=== PATIENT | female | born 1935 | race Caucasian/White ===

== ENCOUNTER → 2016-11-08 | Outpatient (CLI) | payer OTHER ==
[2015-05-09 20:10] VITALS: BP 134/68
[2016-11-08 11:38] LABS: ALANINE AMINOTRANSFERASE 16 Units/L (12-78); ALBUMIN 3.8 g/dL (3.4-5.0); ALKALINE PHOSPHATASE 64 Units/L (46-116); ASPARTATE AMINO TRANSFERASE 19 Units/L (15-37); BLOOD UREA NITROGEN 22 mg/dL (7-18); CALCIUM 9.5 mg/dL (8.5-10.1); CARBON DIOXIDE 27.8 mmol/L (21-32); CHLORIDE 110 mmol/L (98-107); COR NA(FOR HYPERGLY) 145 mmol/L (136-145); CREATININE 1.52 mg/dL (0.55-1.02); GLUCOSE 113 mg/dL (65-99); SODIUM 145 mmol/L (136-145); TOTAL PROTEIN 7.4 g/dL (6.4-8.2); eGFR BLACK RACES 42 (>60); eGFR NON BLACK RACES 35 (>60)
== END ==
LOC: LAB 10:40
PROVIDERS: ATTEND Internal Medicine Cardiovascular Disease
DX: I25.10 Atherosclerotic heart disease of native coronary artery without angina pectoris (principal); I10 Essential (primary) hypertension; R06.09 Other forms of dyspnea
CPT/HCPCS: 36415; 80053

== ENCOUNTER 2016-12-24 19:52 | Inpatient (IN) | payer OTHER ==
--- NOTE | 2016-12-24 20:19 | CT ---
HISTORY: Altered mental status Noncontrast head CT examination. Comparison: None. Technique: Multiple axial images of the brain were obtained from the skull base to the vertex without administr ation of IV contrast. Findings: There is moderate sulcal and cisternal prominence as well as atherosclerotic change in the proximal intracranial carotid and vertebral arteries, which is not out of proportion to the patient 's stated age. There is diffuse CT density alteration seen in the periventricular white matter of th e high and mid-convexity, which is likely in the setting of small vessel disease and not out of prop ortion to the patient's stated age. There is mild bilateral ex vacuo ventricular dilatation without evidence for hydrocephalus or herniation syndrome. No midline shift is evident. No acute intraparenc hymal hemorrhage or mass can be identified. No extra-axial fluid collections are seen. No alterati on in the attenuation of the brain parenchyma can be identified to suggest acute or subacute ischemi c change. However, if the patients symptoms are clinically \T\ neurologically concerning for an acu te ischemic event, then MR imaging of the brain with DWI sequencing would likely be beneficial to ex clude an acute CVA. The paranasal sinuses and mastoids are clear. The remaining extracranial struct ures are unremarkable/stable. IMPRESSION: 1. No acute intracranial process or change identified. 2. Age-appropriate intra-cranial changes of advancing age. Reported By:
--- NOTE | 2016-12-24 20:21 | DR.GENAD ---
HPI - PCP Primary Care Physician: lul - Complaint/Symptoms Chief Complaint Doctors Comments: patient was standing not moving at home. seemed to have problems answering questions. Also some incoordination trying to get cup to lips. Chief Complaint:: family states" she's not acting right she may have had a stroke" - Nurses notes reviewed Nurses Notes Review: Yes - Source History Provided: Patient - Mode of Arrival Mode of Arrival: Wheelchair - Timing Onset of Chief Complaint: 12/24/16 Came on: Suddenly - Duration Duration: Constant - Location Location: general - Severity Severity: Moderate - Associated Signs and Symptoms Associated Signs and Symptoms: fever - Other History Other History: heart valve surgery 6 weeks ago PMH - PMH Past Medical History: Yes Past Medical History: Hypertension, [place] Past Surgical History: Yes Surgical History: CABG/Valve Surgery - Family History History of Family Medical Conditions: Yes Family Medical History: Coronary Artery Disease - Social History Do you use any recreational Drugs:: No Lives Where: Home - infectious screening In the last 2 months have you had wt loss of >10#?: NO Have you had fever, night sweats or hemotysis?: No Have you traveled outside the country in the last 6 months?: No Isolation: Standard PE - Vital Signs Vitals: Pulse Rate [Left Brachial] 91 Pulse Rate 92 Respiratory Rate 18 Blood Pressure [Right Arm] 149/65 Blood Pressure 146/66 O2 Sat by Pulse Oximetry 99 ROR - Labs Reviewed Result Diagrams: 12/24/16 20:41 12/24/16 20:41 Laboratory: WBC 14.5 X10^3/uL (3.6-10.0) H 12/24/16 20:41 RBC 4.26 X10^6/uL (3.5-5.4) 12/24/16 20:41 Hgb 12.7 g/dL (12.0-16.0) 12/24/16 20:41 Hct 37.8 % (36.0-47.0) 12/24/16 20:41 MCV 88.7 fL (80.0-100.0) 12/24/16 20:41 MCH 29.8 pg (27.0-34.0) 12/24/16 20:41 MCHC 33.6 g/dL (33.0-35.0) 12/24/16 20:41 RDW 15.0 % (11.6-16.5) 12/24/16 20:41 Plt Count 266 X10^3/uL (150.0-450.0) 12/24/16 20:41 MPV 8.9 fL (7.4-11.0) 12/24/16 20:41 Neut % 79.9 % (42.0-75.0) H 12/24/16 20:41 Lymph % 10.5 % (21.0-51.0) L 12/24/16 20:41 Cloud % 8.6 % (0.0-13.0) 12/24/16 20:41 Eos % 0.6 % (0.9-2.9) L 12/24/16 20:41 Baso % 0.4 % (0.2-1.0) 12/24/16 20:41 Neut # 11.6 x10^3/uL (2.2-4.8) H 12/24/16 20:41 Lymph # 1.5 X10^3/uL (1.3-2.9) 12/24/16 20:41 Cloud # 1.2 x10^3/uL (0.3-0.8) H 12/24/16 20:41 Eos # 0.1 x10^3/uL (0.0-0.2) 12/24/16 20:41 Baso # 0.1 X10^3/uL (0.0-0.1) 12/24/16 20:41 Absolute Nucleated RBC 0.0 /100WBC 12/24/16 20:41 INR Target Range - 12/24/16 20:41 INR 2.79 (0.8-1.3) H 12/24/16 20:41 Sodium 140 mmol/L (136-145) 12/24/16 20:41 Corrected Sodium 140 mmol/L (136-145) 12/24/16 20:41 Potassium 4.8 mmol/L (3.5-5.1) 12/24/16 20:41 Chloride 105 mmol/L (98-107) 12/24/16 20:41 Carbon Dioxide 25.1 mmol/L (21-32) 12/24/16 20:41 BUN 28 mg/dL (7-18) H 12/24/16 20:41 Creatinine 1.58 mg/dL (0.55-1.02) H 12/24/16 20:41 Est GFR (MDRD) Af Amer 41 (>60) L 12/24/16 20:41 Est GFR (MDRD) Non-Af 34 (>60) L 12/24/16 20:41 Glucose 115 mg/dL (65-99) H 12/24/16 20:41 Lactic Acid 2.0 mmol/L (0.4-2.0) 12/24/16 20:41 Calcium 9.6 mg/dL (8.5-10.1) 12/24/16 20:41 Corrected Calcium TNP 12/24/16 20:41 Total Bilirubin 1.50 mg/dL (0.2-1.0) H 12/24/16 20:41 AST 30 Units/L (15-37) 12/24/16 20:41 ALT 27 Units/L (12-78) 12/24/16 20:41 Alkaline Phosphatase 112 Units/L (46-116) 12/24/16 20:41 Creatine Kinase 70 Units/L (26-192) 12/24/16 20:41 CK-MB (CK-2) 1.0 ng/mL (0-4.0) 12/24/16 20:41 CK/CKMB % Calc 1.4 % (<4) 12/24/16 20:41 Troponin I < 0.02 ng/mL (0-1.5) 12/24/16 20:41 Total Protein 8.2 g/dL (6.4-8.2) 12/24/16 20:41 Albumin 3.7 g/dL (3.4-5.0) 12/24/16 20:41 Globulin 4.5 g/dL (2.5-4.5) 12/24/16 20:41 Albumin/Globulin Ratio 0.8 Ratio (1.1-2.1) L 12/24/16 20:41 Urine Opiates Screen Negative (NEG=<300) 12/24/16 21:41 Urine Methadone Screen Negative (NEG=<300) 12/24/16 21:41 Ur Barbiturates Screen Negative (NEG=<200) 12/24/16 21:41 Ur Phencyclidine Scrn Negative (NEG=<25) 12/24/16 21:41 Ur Amphetamines Screen Negative (NEG=<1000) 12/24/16 21:41 U Benzodiazepines Scrn Negative (NEG=<200) 12/24/16 21:41 Urine Cocaine Screen Negative (NEG=<300) 12/24/16 21:41 U Marijuana (THC) Screen Negative (NEG=<50) 12/24/16 21:41 - Diagnosis Discharge Problem: Altered mental status Qualifiers: Altered mental status type: unspecified Qualified Code(s): R41.82 - Altered mental status, unspecified UTI (urinary tract infection) Qualifiers: Urinary tract infection type: acute cystitis Hematuria presence: without hematuria Qualified Code(s): N30.00 - Acute cystitis without hematuria - Discharge Plan Disposition: ADMITTED INPATIENT Condition: Stable - Follow ups/Referrals - Instructions
[2016-12-24] MEDS ORDERED: MOTRIN TAB 600 MG PO ONE ×2 (20:39→21:16)
[2016-12-24 21:09] LABS: BASOPHILS # (AUTO) 0.1 X10^3/uL (0.0-0.1); BASOPHILS % (AUTO) 0.4 % (0.2-1.0); EOSINOPHILS # (AUTO) 0.1 x10^3/uL (0.0-0.2); EOSINOPHILS % (AUTO) 0.6 % (0.9-2.9); HEMATOCRIT 37.8 % (36.0-47.0); HEMOGLOBIN 12.7 g/dL (12.0-16.0); LYMPHOCYTES # (AUTO) 1.5 X10^3/uL (1.3-2.9); LYMPHOCYTES % (AUTO) 10.5 % (21.0-51.0); MEAN CORPUSCULAR HEMOGLOBIN 29.8 pg (27.0-34.0); MEAN CORPUSCULAR HGB CONC 33.6 g/dL (33.0-35.0); MEAN CORPUSCULAR VOLUME 88.7 fL (80.0-100.0); MEAN PLATELET VOLUME 8.9 fL (7.4-11.0); MONOCYTES # (AUTO) 1.2 x10^3/uL (0.3-0.8); MONOCYTES % (AUTO) 8.6 % (0.0-13.0); NEUTROPHILS # (AUTO) 11.6 x10^3/uL (2.2-4.8); NEUTROPHILS % (AUTO) 79.9 % (42.0-75.0); PLATELET COUNT 266 X10^3/uL (150.0-450.0); RED BLOOD COUNT 4.26 X10^6/uL (3.5-5.4); WHITE BLOOD COUNT 14.5 X10^3/uL (3.6-10.0)
--- NOTE | 2016-12-24 21:09 | RAD ---
HISTORY: 81-year-old female with cough, fever and altered mental status. Study: Frontal view of the chest. Comparison: Chest radiograph December 17, 2012. Findings: Surgical devices are stable. The trachea is midline. The cardiac silhouette is stably enlarged. Low lung volumes with bibasilar atelectasis without focal consolidation, effusion or pneumothorax. Soft tissues are unremarkable. Osseus structures are unremarkable. IMPRESSION: 1. Stable cardiomegaly with low lung volumes and bibasilar atelectasis, underlying infectious proce ss not excluded, correlate clinically. Reported By:
[2016-12-24 21:24] LABS: BLOOD UREA NITROGEN 28 mg/dL (7-18); CALCIUM 9.6 mg/dL (8.5-10.1); CARBON DIOXIDE 25.1 mmol/L (21-32); CHLORIDE 105 mmol/L (98-107); COR NA(FOR HYPERGLY) 140 mmol/L (136-145); CREATININE 1.58 mg/dL (0.55-1.02); GLUCOSE 115 mg/dL (65-99); SODIUM 140 mmol/L (136-145); TROPONIN I < 0.02 ng/mL (0-1.5); eGFR BLACK RACES 41 (>60); eGFR NON BLACK RACES 34 (>60)
[2016-12-24 21:28] LABS: ALANINE AMINOTRANSFERASE 27 Units/L (12-78); ALBUMIN 3.7 g/dL (3.4-5.0); ALKALINE PHOSPHATASE 112 Units/L (46-116); ASPARTATE AMINO TRANSFERASE 30 Units/L (15-37); CKMB % 1.4 % (<4); CREATINE KINASE 70 Units/L (26-192); TOTAL PROTEIN 8.2 g/dL (6.4-8.2)
[2016-12-24 22:04] LABS: BILIRUBIN,URINE NEGATIVE (NEGATIVE); BLOOD/HEMOGLOBIN,URINE 2+ (NEGATIVE); GLUCOSE, URINE NEGATIVE (NEGATIVE); KETONES,URINE NEGATIVE (NEGATIVE); LEUKOCYTE ESTERASE ,URINE 2+ (NEGATIVE); NITRITES,URINE NEGATIVE (NEGATIVE); PROTEIN,URINE 1+ (NEGATIVE); UROBILINOGEN,URINE 1+ (NORMAL)
[2016-12-24 22:20] LABS: APPEARANCE,URINE SLIGHTLY HAZY (CLEAR); COLOR,URINE YELLOW (YELLOW)
[2016-12-24 22:21] LABS: BACTERIA,URINE TRACE /HPF (NEGATIVE); SQUAMOUS EPITHELIAL CELL,UR FEW /HPF (NEGATIVE)
[2016-12-24] MEDS ORDERED: ROCEPHIN VIAL 1 GM ONE (22:48)
[2016-12-24] MEDS ORDERED: NS 1000 ML 1,000 ML IV SCH (22:48)
[2016-12-24] MEDS ORDERED: NS 50 ML IV + SPIKE MINIBAG* 50 ML IV ONE (22:49)
[2016-12-24] MEDS: ROCEPHIN VIAL 1 GM 1 GM in NS 50 ML IV + SPIKE MINIBAG* 50 ML IV SCH (22:52)
[2016-12-24] MEDS: NS 1000 ML 1,000 ML IV SCH (22:53)
[2016-12-24 23:45] VITALS: BMI 28.8
[2016-12-25] MEDS: DUONEB 0.5 MG/3 MG NEB SCH ×5 (05:17→20:22)
--- NOTE | 2016-12-25 08:08 | DR.H&P ---
H&P - History & Physical for Day of: H&P Date: 12/24/16 - Chief Complaint Chief Complaint: ALTERED MENTAL STATUS,WEAKNESS, FEVER - Allergies Allergies/Adverse Reactions: Allergies Allergy/AdvReac Type Severity Reaction Status Date / Time No Known Drug Allergies Allergy Verified 12/24/16 23:57 - History of Present Illness History of Present Illness: IS A 81 YEAR OLD PATIENT OF OURS WHO PRESENTED TO THE EMERGENCY ROOM LAST NIGHT WITH COMPLAINTS OF WEAKNESS, INCOORDINATION, AND FEVER. FAMILY ALSO STATED THAT PATIENT HAD BEEN CONFUSED AND THAT SYMPTOMS STARTED SUDDENLY PRIOR TO COMING TO THE ER. PATIENT IS S/P MITRAL VALVE REPLACEMENT 6 WEEKS AGO. PATIENT DENIED ANY CHEST PAIN, HOWEVER, WAS NOTED WITH COUGH. ON ARRIVAL TO ER, VITALS WERE 101.0. 92, 18, 98%, 146/66. LABS REPORTED A NORMAL CBC EXCEPT WBC 14.5. CMP WITHIN NORMAL LIMITS EXCEPT VUN 28, CREATININE 1.58, GLUCOSE 115, TOTAL BILIRUBIN 1.50. INR 2.79. URINALYSIS REPORTED WBC 10-15, RBC 2-6, LEUKOCYTES 2+, OCCULT BLOOD 2+, PROTEIN 1+. WE ADMITTED PATIENT FOR FUTHER TREATMENT AND EVALUATION. WE WILL START PATIENT ON NS @80ML/HR, START ROCEPHIN 1GM IV DAILY, AND DUONEBS TID. WE WILL RECHECK LABS AND CHEST XRAY AND FOLLOW UP WITH PATIENT IN AM. - Past Medical History Past Medical History: Angina, CHF, Coronary Artery Disease, Dyslipidemia, GERD, Hypertension, [place] Additional Medical History: VALVULAR HEART DISEASE, CARDIAC ARRHYTHMIA - Past Surgical History Surgical History: CABG/Valve Surgery Additional Surgical History: CATARACTS, MITRAL VALVE REPLACEMENT X 2 - Family History Family Medical History: Coronary Artery Disease - Social History Does patient currently use any type of tobacco product: No Have you used tobacco products in the last 12 months: No Type of Tobacco Use: None Alcohol Use: None Drug Use: None - Medications Home Medications: Amiodarone HCl 1 tab PO DAILY 12/24/16 [History Confirmed 12/24/16] Amlodipine Besylate [NORVASC 5 MG *] 1 tab PO DAILY 12/24/16 [History Confirmed 12/24/16] Furosemide [Furosemide] 1 tab PO DAILY 12/24/16 [History Confirmed 12/24/16] Olmesartan Medoxomil [Benicar] 1 tab PO DAILY 12/24/16 [History Confirmed ] Spironolactone 0.5 tab PO DAILY 12/24/16 [History Confirmed 12/24/16] Warfarin Sodium 1 tab PO HS 12/24/16 [History Confirmed 12/24/16] - Review of Systems Constitutional: See HPI, Fever, Weakness Eyes: No Symptoms Reported. denies: See HPI, Pain, Vision Change, Conjunctivae Inflammation, Eyelid Inflammation, Redness, Other ENT: No Symptoms Reported. denies: See HPI, Ear Pain, Ear Discharge, Nose Pain , Nose Discharge, Nose Congestion, Mouth Pain, Mouth Swelling, Throat Pain, Throat Swelling, Other Respiratory: No Symptoms Reported. denies: See HPI, Cough, Dry, Shortness of Breath, Hemoptysis, SOB with Excertion, Pleuritic Pain, Sputum, Wheezing, Other Cardiovascular: No Symptoms Reported. denies: Chest Pain, See HPI, Palpitations , Orthopnea, Paroxysmal Noc. Dyspnea, Edema, Light Headedness, Other Gastrointestinal: No Symptoms Reported. denies: See HPI, Nausea, Vomiting, Abdominal Pain, Diarrhea, Constipation, Melena, Hematochezia, Other Genitourinary: No Symptoms Reported. denies: See HPI, Dysuria, Frequency, Incontinence, Hematuria, Retention, Other Musculoskeletal: No Symptoms Reported. denies: See HPI, Shoulder Pain, Arm Pain , Back Pain, Hand Pain, Leg Pain, Foot Pain, Neck Pain, Other Skin: No Symptoms Reported. denies: See HPI, Rash, Lesions, Jaundice, Bruising , Wound, Ecchymosis, Other Neurological: See HPI, Weakness, Incoordination, Confusion - Physical Exam Vital Signs: Temperature 98.4 F Pulse Rate [Left Brachial] 91 Pulse Rate 70 Respiratory Rate 20 Blood Pressure [Right Arm] 111/60 O2 Sat by Pulse Oximetry 97 Oriented: Person Eyes: Normal. negative: Blurred Vision, Diplopia, Discharge, Pain, Redness, Photophobia, Other Ear: Normal. negative: Right, Left, Swelling, Ecchymosis, Hemotypanum, Abrasion , Laceration Nose: Normal. negative: Injected, Discharge, Blood, Other Throat: Normal. negative: Tonsillar Hypertrophy, Red, Exudate, Dry, Other Respiratory: Clear Throughout. negative: Diminished Throughout, Rhonchi Throughout, Rales Throughout, Wheezes Throughout, RUL Clear, RML Clear, RLL Clear, MARITA Clear, LML Clear, LLL Clear, RUL Diminished, RML Diminished, RLL Diminished, MARITA Diminished, LML Diminished, LLL Diminished, RUL Absent, RML Absent, RLL Absent, MARITA Absent, LML Absent, LLL Absent, RUL Rhonchi, RML Rhonchi , RLL Rhonchi, MARITA Rhonchi, LML Rhonchi, LLL Rhonchi, RUL Insp. Wheeze, RML Insp. Wheeze, RLL Insp. Wheeze, MARITA Insp.Wheeze, LML Insp.Wheeze, LLL Insp.Wheeze, RUL Exp. Wheeze, RML Exp. Wheeze, RLL Exp. Wheeze, MARITA Exp. Wheeze , LML Exp. Wheeze, LLL Exp. Wheeze, RUL Rales, RML Rales, RLL Rales, MARITA Rales, LML Rales, LLL Rales, RUL Rub, RML Rub, RLL Rub, MARITA Rub, LML Rub, LLL Rub, RUL Squeak, RML Squeak, RLL Squeak, MARITA Squeak, LML Squeak, LLL Squeak Cardiovascular: Normal. negative: Tachycardia, Bradycardia, Irregular, S3, S4, Systolic, Diastolic, Murmur, Edema, Other : Normal. negative: Dysuria, Hematuria, Frequency, Discharge, Testicular Pain , Bleeding, , Other Auscultation: Bowel Sounds: Normal. negative: Bruit, Absent, Increased, Decreased, High Pitched, Other Palpation: Normal. negative: Spleen Enlarged, Liver Enlarged, Mass Pulsatile, Other Tenderness: Normal. negative: Diffuse, RUQ, RLQ, LUQ, LLQ, Epigastric, Periumbilical, Suprapubic, Mild, Moderate, Severe, Rebound, Guarding, Rigidity, Other Skin: Normal. negative: Decreased Turgur, Rash, Papular, Macular, Maculopapular , Vesicular, Pustular, Petechial, Red, Tender, Hot, Diaphoresis, Wound, Bruising , Ecchymosis, Other Musculoskeletal: Normal. negative: Right, Left, Shoulder, Clavicle, Arm, Elbow , Forearm, Wrist, Hand, Hip, Thigh, Knee, Leg, Ankle, Foot, Back:Thoracic, Back: Lumbar, Back:Midline, Back:Paraspinous, Pelvis, Swelling, Tender, Deformity, Pulse Deficit, Motor Deficit, Sensory Deficit, Instability, Crepitance Psychiatric: Normal. negative: Anxiety, Depression, Agitation, Other Mood Description: Calm Affect: Normal Speech Pattern: Unclear - Assessment/Plan (1) UTI (urinary tract infection) Qualifiers: Urinary tract infection type: acute cystitis Hematuria presence: without hematuria Indwelling urinary catheter type: I Encounter type: E Qualified Code(s): N30.00 - Acute cystitis without hematuria Status: Acute Plan: START ROCEPHIN 1GM DAILY, CONTINUE TO MONITOR
[2016-12-25] MEDS: ROCEPHIN VIAL 1 GM 1 GM in NS 50 ML IV + SPIKE MINIBAG* 50 ML IV SCH (08:25)
[2016-12-25 08:35] LABS: BASOPHILS # (AUTO) 0.1 X10^3/uL (0.0-0.1); BASOPHILS % (AUTO) 0.4 % (0.2-1.0); EOSINOPHILS % (AUTO) 0.2 % (0.9-2.9); HEMATOCRIT 36.8 % (36.0-47.0); HEMOGLOBIN 12.3 g/dL (12.0-16.0); LYMPHOCYTES # (AUTO) 1.4 X10^3/uL (1.3-2.9); LYMPHOCYTES % (AUTO) 7.6 % (21.0-51.0); MEAN CORPUSCULAR HEMOGLOBIN 29.8 pg (27.0-34.0); MEAN CORPUSCULAR HGB CONC 33.5 g/dL (33.0-35.0); MEAN CORPUSCULAR VOLUME 88.8 fL (80.0-100.0); MEAN PLATELET VOLUME 8.7 fL (7.4-11.0); MONOCYTES # (AUTO) 1.2 x10^3/uL (0.3-0.8); MONOCYTES % (AUTO) 6.4 % (0.0-13.0); NEUTROPHILS # (AUTO) 16.2 x10^3/uL (2.2-4.8); NEUTROPHILS % (AUTO) 85.4 % (42.0-75.0); PLATELET COUNT 207 X10^3/uL (150.0-450.0); RED BLOOD COUNT 4.14 X10^6/uL (3.5-5.4); RED CELL DISTRIBUTION WIDTH 15.1 % (11.6-16.5)
[2016-12-25 08:52] LABS: ALBUMIN 3.2 g/dL (3.4-5.0); CALCIUM 9.1 mg/dL (8.5-10.1); CARBON DIOXIDE 23.4 mmol/L (21-32); COR CA(FOR HYPOALB) 9.7 mg/dL (8.5-10.1); CREATININE 1.52 mg/dL (0.55-1.02); TOTAL PROTEIN 7.5 g/dL (6.4-8.2)
[2016-12-25] MEDS ORDERED: OLMESARTAN MEDOXOMIL PO SCH (09:00)
[2016-12-25] MEDS: ALDACTONE TAB 25 MG PO SCH (09:55)
[2016-12-25] MEDS: ASPIRIN EC 81 MG PO SCH (09:55)
[2016-12-25] MEDS: CORDARONE TAB 200 MG PO SCH (09:56)
[2016-12-25] MEDS: LASIX PO SCH (09:57)
[2016-12-25] MEDS: TESSALON PERLES PO SCH ×3 (09:58→21:48)
[2016-12-25] MEDS: NORVASC TAB 5 MG PO SCH (09:58)
[2016-12-25] MEDS: PriLOSEC PO SCH (09:59)
--- NOTE | 2016-12-25 10:53 | RAD ---
Chest, one view Indication: Shortness of breath Comparison: December 24, 2016 Findings: There is stable mild cardiomegaly with prior median sternotomy changes again noted. Lungs are again hypoexpanded with unchanged streaky right basilar opacities, compatible with atelectasis. Left basil ar opacities appear slightly more confluent on today's exam. No significant effusion or pneumothorax is identified. Impression: Increasing left basilar opacities, possibly reflecting atelectasis or developing pneumonia in the ap propriate clinical setting. Clinical correlation is advised. Reported By:
--- NOTE | 2016-12-25 11:59 | DR.CARTERS ---
Short Stay Summary - Short Stay Summary for: Short Stay Summary for Date of:: 12/25/16 - Admission Date Date of Admission: 12/24/16 - Discharge Date Discharge Date: 12/25/16 - Admission Diagnoses (1) UTI (urinary tract infection) Status: Acute - Hospital Course Hospital Course: DAY 1 OF HOSPITAL STAY: IS A 81 YEAR OLD PATIENT OF OURS WHO PRESENTED TO THE EMERGENCY ROOM LAST NIGHT WITH COMPLAINTS OF WEAKNESS, INCOORDINATION, AND FEVER. FAMILY ALSO STATED THAT PATIENT HAD BEEN CONFUSED AND THAT SYMPTOMS STARTED SUDDENLY PRIOR TO COMING TO THE ER. PATIENT IS S/P MITRAL VALVE REPLACEMENT 6 WEEKS AGO. PATIENT DENIED ANY CHEST PAIN, HOWEVER, WAS NOTED WITH COUGH. ON ARRIVAL TO ER, VITALS WERE 101.0. 92, 18, 98%, 146/66. LABS REPORTED A NORMAL CBC EXCEPT WBC 14.5. CMP WITHIN NORMAL LIMITS EXCEPT VUN 28, CREATININE 1.58, GLUCOSE 115, TOTAL BILIRUBIN 1.50. INR 2.79. URINALYSIS REPORTED WBC 10-15, RBC 2-6, LEUKOCYTES 2+, OCCULT BLOOD 2+, PROTEIN 1+. WE ADMITTED PATIENT FOR FUTHER TREATMENT AND EVALUATION. WE WILL START PATIENT ON NS @80ML/HR, START ROCEPHIN 1GM IV DAILY, AND DUONEBS TID. WE WILL RECHECK LABS AND CHEST XRAY AND FOLLOW UP WITH PATIENT IN AM. DAY 2 OF HOSPITAL STAY: PATIENT WAS AWAKE AND ORIENTED TO PERSON, PLACE, AND TIME ON MORNING ROUNDS. FAMILY IS AT BEDSIDE. PATIENT DENIES ANY COMPLAINTS WEAKNESS OR PAIN AT THIS TIME. PATIENT IS NOTED WITH COUGH. VITALS THIS AM WERE 97.6, 82, 20, 94%, 128/61. WE OBTAINED A CBC, CMP, AND CHEST XRAY. CMP REPORTED WBC 19.0. CMP REPORTED BUN 26, CREATININE 1.52, GLUCOSE 150, TOTAL BILIRUBIN 1.80, ALBUMIN 3.2. CHEST XRAY REPORTS INCREASING LEFT BASILAR OPACITIES, POSSIBLY REFLECTING ATELECTASIS OR DEVELOPING PNEUMONIA. PATIENT VERBALIZES WANTING TO BE DISCHARGED TO HOME TODAY. FAMILY IS IN AGREEMENT AND STATES THAT SOMEONE WILL BE AT HOME TO SEE TO PATIENT AFTER DISCHARGE. WE PLANNED FOR DISCHARGE. INSTRUCTIONS FOR MEDICATIONS AND FOLLOW UP WERE GIVEN TO PATIENT AND FAMILY. BOTH VERBALIZE UNDERSTANDING. PATIENT WILL BE DISCHARGE HOME IN STABLE CONDITION WITH FAMILY.SHE WILL CONTINUE HOME MEDICATIONS. WE WILL START HER ON AUGMENTIN 875 BID FOR 10 DAYS AND TESSALON PEARLS 200MG TID PRN COUGH. PATIENT IS INSTRUCTED TO FOLLOW UP IN OFFICE ON FRIDAY. - Discharge Medications Discharge Medications: Amiodarone HCl 1 tab PO DAILY 12/24/16 [History] Amlodipine Besylate [NORVASC 5 MG *] 1 tab PO DAILY 12/24/16 [History] Furosemide 1 tab PO DAILY 12/24/16 [History] Olmesartan Medoxomil [Benicar] 1 tab PO DAILY 12/24/16 [History] Spironolactone 0.5 tab PO DAILY 12/24/16 [History] Warfarin Sodium 1 tab PO HS 12/24/16 [History] Amoxicillin/Potassium Clav [Augmentin 875-125 Tablet] 1 tab PO Q12H #20 tab [Rx] Benzonatate [TESSALON PERLES *] 200 mg PO TID PRN #30 cap 12/25/16 [Rx] Metoprolol Tartrate 25 mg PO HS 12/25/16 [History] - Discharge Plan Disposition: HOME, SELF-CARE Condition: Stable Prescriptions: Amoxicillin/Potassium Clav [Augmentin 875-125 Tablet] 1 tab PO Q12H #20 tab Benzonatate [TESSALON PERLES *] 200 mg PO TID PRN #30 cap PRN Reason: Cough - Follow up/Referrals Follow up/Referrals: Cecilio Dallas [Primary Care Provider] - 12/27/16 10:00 am - Instructions Instructions: Confusion, Warfarin: What You Need to Know, Urinary Tract Infection, [id number], Hypertension, [id number], Heart Failure, [id number] , Ciprofloxacin tablets Additional Instructions: ACTIVITY TOLERATED. DIET TOLERATED. Forms: Patient Portal
[2016-12-25] MEDS: LOPRESSOR TAB 25 MG PO SCH ×2 (12:00→21:51)
[2016-12-25] MEDS: TYLENOL 325 MG TAB PO PRN (14:37)
--- NOTE | 2016-12-25 14:59 | DR.H&P ---
H&P - History & Physical for Day of: H&P Date: 12/24/16 - Chief Complaint Chief Complaint: WEAKNESS, FEVER, SHORTNESS OF BREATH - Allergies Allergies/Adverse Reactions: Allergies Allergy/AdvReac Type Severity Reaction Status Date / Time No Known Drug Allergies Allergy Verified 12/24/16 23:57 - History of Present Illness History of Present Illness: IS A 81 YEAR OLD PATIENT OF OURS WHO PRESENTED TO THE EMERGENCY ROOM LAST NIGHT WITH COMPLAINTS OF WEAKNESS, INCOORDINATION, AND FEVER. FAMILY ALSO STATED THAT PATIENT HAD BEEN CONFUSED AND THAT SYMPTOMS STARTED SUDDENLY PRIOR TO COMING TO THE ER. PATIENT IS S/P MITRAL VALVE REPLACEMENT 6 WEEKS AGO. PATIENT DENIED ANY CHEST PAIN, HOWEVER, WAS NOTED WITH COUGH AND SHORTNESS OF BREATH. ON ARRIVAL TO ER, VITALS WERE 101.0. 92, 18, 98%, 146/66. LABS REPORTED A NORMAL CBC EXCEPT WBC 14.5. CMP WITHIN NORMAL LIMITS EXCEPT VUN 28, CREATININE 1.58, GLUCOSE 115, TOTAL BILIRUBIN 1.50. INR 2.79. URINALYSIS REPORTED WBC 10-15, RBC 2-6, LEUKOCYTES 2+ , OCCULT BLOOD 2+, PROTEIN 1+. WE ADMITTED PATIENT FOR FUTHER TREATMENT AND EVALUATION. WE WILL START PATIENT ON NS @80ML/HR, START ROCEPHIN 1GM IV DAILY, AND DUONEBS TID. WE WILL RECHECK LABS AND CHEST XRAY AND FOLLOW UP WITH PATIENT IN AM. - Past Medical History Past Medical History: Angina, CHF, Coronary Artery Disease, Dyslipidemia, GERD, Hypertension, [place] Additional Medical History: CARDIAC ARRYTHMIA - Past Surgical History Surgical History: CABG/Valve Surgery Additional Surgical History: MITRAL VALVE REPLACEMENT X 2 - Family History Family Medical History: Coronary Artery Disease - Social History Does patient currently use any type of tobacco product: No Have you used tobacco products in the last 12 months: No Type of Tobacco Use: None Alcohol Use: None Drug Use: None - Medications Home Medications: Amiodarone HCl 1 tab PO DAILY 12/24/16 [History Confirmed 12/24/16] Amlodipine Besylate [NORVASC 5 MG *] 1 tab PO DAILY 12/24/16 [History Confirmed 12/24/16] Furosemide 1 tab PO DAILY 12/24/16 [History Confirmed 12/24/16] Olmesartan Medoxomil [Benicar] 1 tab PO DAILY 12/24/16 [History Confirmed ] Spironolactone 0.5 tab PO DAILY 12/24/16 [History Confirmed 12/24/16] Warfarin Sodium 1 tab PO HS 12/24/16 [History Confirmed 12/24/16] Metoprolol Tartrate 25 mg PO HS 12/25/16 [History Confirmed 12/25/16] - Review of Systems Constitutional: Fever, Weakness Eyes: No Symptoms Reported. denies: See HPI, Pain, Vision Change, Conjunctivae Inflammation, Eyelid Inflammation, Redness, Other ENT: No Symptoms Reported. denies: See HPI, Ear Pain, Ear Discharge, Nose Pain , Nose Discharge, Nose Congestion, Mouth Pain, Mouth Swelling, Throat Pain, Throat Swelling, Other Respiratory: Cough, Shortness of Breath. denies: No Symptoms Reported, See HPI , Dry, Hemoptysis, SOB with Excertion, Pleuritic Pain, Sputum, Wheezing, Other Cardiovascular: No Symptoms Reported. denies: Chest Pain, See HPI, Palpitations , Orthopnea, Paroxysmal Noc. Dyspnea, Edema, Light Headedness, Other Gastrointestinal: No Symptoms Reported. denies: See HPI, Nausea, Vomiting, Abdominal Pain, Diarrhea, Constipation, Melena, Hematochezia, Other Genitourinary: No Symptoms Reported. denies: See HPI, Dysuria, Frequency, Incontinence, Hematuria, Retention, Other Musculoskeletal: No Symptoms Reported. denies: See HPI, Shoulder Pain, Arm Pain , Back Pain, Hand Pain, Leg Pain, Foot Pain, Neck Pain, Other Skin: No Symptoms Reported. denies: See HPI, Rash, Lesions, Jaundice, Bruising , Wound, Ecchymosis, Other Neurological: Weakness, Incoordination, Confusion. denies: See HPI, Numbness, Change in Speech, Seizures, Other - Physical Exam Vital Signs: Temperature 98.4 F Pulse Rate [Left Brachial] 91 Pulse Rate 70 Respiratory Rate 20 Blood Pressure [Left Arm] 121/59 Blood Pressure [Right Arm] 111/60 O2 Sat by Pulse Oximetry 94 Oriented: Not Oriented. negative: Normal, Time, Person, Place, Unable to test, Other Eyes: Normal. negative: Blurred Vision, Diplopia, Discharge, Pain, Redness, Photophobia, Other Ear: Normal. negative: Right, Left, Swelling, Ecchymosis, Hemotypanum, Abrasion , Laceration Nose: Normal Throat: Normal. negative: Tonsillar Hypertrophy, Red, Exudate, Dry, Other Respiratory: Clear Throughout. negative: Diminished Throughout, Rhonchi Throughout, Rales Throughout, Wheezes Throughout, RUL Clear, RML Clear, RLL Clear, MARITA Clear, LML Clear, LLL Clear, RUL Diminished, RML Diminished, RLL Diminished, MARITA Diminished, LML Diminished, LLL Diminished, RUL Absent, RML Absent, RLL Absent, MARITA Absent, LML Absent, LLL Absent, RUL Rhonchi, RML Rhonchi , RLL Rhonchi, MARITA Rhonchi, LML Rhonchi, LLL Rhonchi, RUL Insp. Wheeze, RML Insp. Wheeze, RLL Insp. Wheeze, MARITA Insp.Wheeze, LML Insp.Wheeze, LLL Insp.Wheeze, RUL Exp. Wheeze, RML Exp. Wheeze, RLL Exp. Wheeze, MARITA Exp. Wheeze , LML Exp. Wheeze, LLL Exp. Wheeze, RUL Rales, RML Rales, RLL Rales, MARITA Rales, LML Rales, LLL Rales, RUL Rub, RML Rub, RLL Rub, MARITA Rub, LML Rub, LLL Rub, RUL Squeak, RML Squeak, RLL Squeak, MARITA Squeak, LML Squeak, LLL Squeak Cardiovascular: Normal. negative: Tachycardia, Bradycardia, Irregular, S3, S4, Systolic, Diastolic, Murmur, Edema, Other : Normal. negative: Dysuria, Hematuria, Frequency, Discharge, Testicular Pain , Bleeding, , Other Auscultation: Bowel Sounds: Normal. negative: Bruit, Absent, Increased, Decreased, High Pitched, Other Palpation: Normal. negative: Spleen Enlarged, Liver Enlarged, Mass Pulsatile, Other Tenderness: Normal. negative: Diffuse, RUQ, RLQ, LUQ, LLQ, Epigastric, Periumbilical, Suprapubic, Mild, Moderate, Severe, Rebound, Guarding, Rigidity, Other Skin: Normal. negative: Decreased Turgur, Rash, Papular, Macular, Maculopapular , Vesicular, Pustular, Petechial, Red, Tender, Hot, Diaphoresis, Wound, Bruising , Ecchymosis, Other Musculoskeletal: Normal. negative: Right, Left, Shoulder, Clavicle, Arm, Elbow , Forearm, Wrist, Hand, Hip, Thigh, Knee, Leg, Ankle, Foot, Back:Thoracic, Back: Lumbar, Back:Midline, Back:Paraspinous, Pelvis, Swelling, Tender, Deformity, Pulse Deficit, Motor Deficit, Sensory Deficit, Instability, Crepitance Psychiatric: Normal. negative: Anxiety, Depression, Agitation, Other Mood Description: Calm. negative: Angry, Apathetic, Depressed, Fearful, Flat, Happy, Hostile, Sad, Suspicious, Withdrawn, Anxious, Appropriate, Labile Affect: Normal. negative: Angry, Anxious, Depressed, Flat, Hysterical, Quiet, Violent Speech Pattern: Clear. negative: Appropriate, Unclear, Inappropriate, Delayed, Slurred, Excessive, Aphasic, Artificially Ventilated - Assessment/Plan (1) UTI (urinary tract infection) Qualifiers: Urinary tract infection type: acute cystitis Hematuria presence: without hematuria Indwelling urinary catheter type: I Encounter type: E Qualified Code(s): N30.00 - Acute cystitis without hematuria Status: Acute Plan: START ROCEPHIN 1 GM IV DAILY, CONTINUE TO MONITOR (2) Altered mental status Qualifiers: Altered mental status type: unspecified Coma depth: C Coma timing: C Qualified Code(s): R41.82 - Altered mental status, unspecified Status: Acute Plan: CONTINUE TO MONITOR (3) Fever Qualifiers: Fever type: unspecified Encounter type: E Qualified Code(s): R50.9 - Fever, unspecified Status: Acute Plan: TYLENOL 650 MG PO Q4H PRN, CONTINUE TO MONITOR (4) Weakness generalized Status: Acute Plan: IV FLUIDS, CONTINUE TO MONITOR, PT CONSULT
[2016-12-25] MEDS ORDERED: INVANZ INJ 1 GM VIAL ONE (15:02)
[2016-12-25] MEDS ORDERED: NS 50 ML IV 50 ML IV ONE (15:02)
[2016-12-25] MEDS ORDERED: FORTAZ or TAZICEF INJ ONE (15:03)
--- NOTE | 2016-12-25 15:07 | PCM.PROG ---
Progress Note - Progress Note for Day of Date: 12/25/16 - Subjective Subjective: PATIENT WAS AWAKE AND ORIENTED TO PERSON, PLACE, AND TIME ON MORNING ROUNDS. FAMILY IS AT BEDSIDE. PATIENT DENIES ANY COMPLAINTS WEAKNESS OR PAIN AT THIS TIME. PATIENT IS NOTED WITH COUGH AND COMPLAINS OF SHORTNESS OF BREATH. VITALS THIS AM WERE 97.6, 82, 20, 94%, 128/61. ON AUSCULTATION, WHEEZING IS NOTED BILATERALLY. WE OBTAINED A CBC, CMP, AND CHEST XRAY. CMP REPORTED WBC 19.0. CMP REPORTED BUN 26, CREATININE 1.52, GLUCOSE 150, TOTAL BILIRUBIN 1.80, ALBUMIN 3.2. CHEST XRAY REPORTS INCREASING LEFT BASILAR OPACITIES, POSSIBLY REFLECTING ATELECTASIS OR DEVELOPING PNEUMONIA. LAB PERSONNEL CALLED CRITICAL RESULT OF BLOOD CULTURES GROWING GRAM POSITIVE COCCI. WE WILL DISCONTINUE ROCEPHIN AND START LEVAQUIN 500MG IV DAILY AND FORTAZ IV DAILY Q8H. WE WILL CHANGE DUONEBS TO QID. WE WILL RECHECK LABS AND FOLLOW UP WITH PATIENT IN AM. - Past Medical Family Social History Past Med/Fam/Surg Hx: No changes since H&P Allergies: Allergies No Known Drug Allergies Allergy (Verified 12/24/16 23:57) - Review of Systems ROS: No change since H&P - Vital Signs and I&O's Vital Signs: Temperature 98.4 F Pulse Rate [Left Brachial] 91 Pulse Rate 70 Respiratory Rate 20 Blood Pressure [Left Arm] 121/59 Blood Pressure [Right Arm] 111/60 O2 Sat by Pulse Oximetry 94 Intake and Output: Intake & Output 12/23/16 12/24/16 12/25/16 12/26/16 11:59 11:59 11:59 11:59 Intake Total 35 Output Total 300 Balance -265 - Physical Exam Oriented: Normal Eyes: Normal. negative: Blurred Vision, Diplopia, Discharge, Pain, Redness, Photophobia, Other Ear: Normal. negative: Right, Left, Swelling, Ecchymosis, Hemotypanum, Abrasion , Laceration Nose: Normal Throat: Normal. negative: Tonsillar Hypertrophy, Red, Exudate, Dry, Other Respiratory: Right, Left, Wheezes Cardiovascular: Normal. negative: Tachycardia, Bradycardia, Irregular, S3, S4, Systolic, Diastolic, Murmur, Edema, Other : Normal. negative: Dysuria, Hematuria, Frequency, Discharge, Testicular Pain , Bleeding, , Other Auscultation: Bowel Sounds: Normal. negative: Bruit, Absent, Increased, Decreased, High Pitched, Other Palpation: Normal Tenderness: Normal. negative: Diffuse, RUQ, RLQ, LUQ, LLQ, Epigastric, Periumbilical, Suprapubic, Mild, Moderate, Severe, Rebound, Guarding, Rigidity, Other Skin: Normal. negative: Decreased Turgur, Rash, Papular, Macular, Maculopapular , Vesicular, Pustular, Petechial, Red, Tender, Hot, Diaphoresis, Wound, Bruising , Ecchymosis, Other Musculoskeletal: Normal. negative: Right, Left, Shoulder, Clavicle, Arm, Elbow , Forearm, Wrist, Hand, Hip, Thigh, Knee, Leg, Ankle, Foot, Back:Thoracic, Back: Lumbar, Back:Midline, Back:Paraspinous, Pelvis, Swelling, Tender, Deformity, Pulse Deficit, Motor Deficit, Sensory Deficit, Instability, Crepitance Psychiatric: Normal. negative: Anxiety, Depression, Agitation, Other Mood Description: Calm. negative: Angry, Apathetic, Depressed, Fearful, Flat, Happy, Hostile, Sad, Suspicious, Withdrawn, Anxious, Appropriate, Labile Affect: Normal. negative: Angry, Anxious, Depressed, Flat, Hysterical, Quiet, Violent Speech Pattern: Clear. negative: Appropriate, Unclear, Inappropriate, Delayed, Slurred, Excessive, Aphasic, Artificially Ventilated - Laboratory and Diagnostics Result Diagrams: 12/26/16 03:40 12/26/16 03:40 Labs: Laboratory WBC 19.0 X10^3/uL (3.6-10.0) H 12/25/16 08:26 RBC 4.14 X10^6/uL (3.5-5.4) 12/25/16 08:26 Hgb 12.3 g/dL (12.0-16.0) 12/25/16 08:26 Hct 36.8 % (36.0-47.0) 12/25/16 08:26 MCV 88.8 fL (80.0-100.0) 12/25/16 08:26 MCH 29.8 pg (27.0-34.0) 12/25/16 08:26 MCHC 33.5 g/dL (33.0-35.0) 12/25/16 08:26 RDW 15.1 % (11.6-16.5) 12/25/16 08:26 Plt Count 207 X10^3/uL (150.0-450.0) 12/25/16 08:26 MPV 8.7 fL (7.4-11.0) 12/25/16 08:26 Neut % 85.4 % (42.0-75.0) H 12/25/16 08:26 Lymph % 7.6 % (21.0-51.0) L 12/25/16 08:26 [place] % 6.4 % (0.0-13.0) 12/25/16 08:26 Eos % 0.2 % (0.9-2.9) L 12/25/16 08:26 Baso % 0.4 % (0.2-1.0) 12/25/16 08:26 Neut # 16.2 x10^3/uL (2.2-4.8) H 12/25/16 08:26 Lymph # 1.4 X10^3/uL (1.3-2.9) 12/25/16 08:26 [place] # 1.2 x10^3/uL (0.3-0.8) H 12/25/16 08:26 Eos # 0.0 x10^3/uL (0.0-0.2) 12/25/16 08:26 Baso # 0.1 X10^3/uL (0.0-0.1) 12/25/16 08:26 Absolute Nucleated RBC 0.1 /100WBC 12/25/16 08:26 INR Target Range - 12/25/16 09:09 INR 2.97 (0.8-1.3) H 12/25/16 09:09 PTT 43.8 SECONDS (22.9-36.5) H 12/25/16 09:09 PTT Comment - 12/25/16 09:09 Sodium 140 mmol/L (136-145) 12/25/16 08:26 Corrected Sodium 141 mmol/L (136-145) 12/25/16 08:26 Potassium 4.5 mmol/L (3.5-5.1) 12/25/16 08:26 Chloride 107 mmol/L (98-107) 12/25/16 08:26 Carbon Dioxide 23.4 mmol/L (21-32) 12/25/16 08:26 BUN 26 mg/dL (7-18) H 12/25/16 08:26 Creatinine 1.52 mg/dL (0.55-1.02) H 12/25/16 08:26 Est GFR (MDRD) Af Amer 42 (>60) L 12/25/16 08:26 Est GFR (MDRD) Non-Af 35 (>60) L 12/25/16 08:26 Glucose 150 mg/dL (65-99) H 12/25/16 08:26 Lactic Acid 2.0 mmol/L (0.4-2.0) 12/24/16 20:41 Calcium 9.1 mg/dL (8.5-10.1) 12/25/16 08:26 Corrected Calcium 9.7 mg/dL (8.5-10.1) 12/25/16 08:26 Total Bilirubin 1.80 mg/dL (0.2-1.0) H 12/25/16 08:26 AST 26 Units/L (15-37) 12/25/16 08:26 ALT 24 Units/L (12-78) 12/25/16 08:26 Alkaline Phosphatase 96 Units/L (46-116) 12/25/16 08:26 Creatine Kinase 70 Units/L (26-192) 12/24/16 20:41 CK-MB (CK-2) 1.0 ng/mL (0-4.0) 12/24/16 20:41 CK/CKMB % Calc 1.4 % (<4) 12/24/16 20:41 Troponin I < 0.02 ng/mL (0-1.5) 12/24/16 20:41 Total Protein 7.5 g/dL (6.4-8.2) 12/25/16 08:26 Albumin 3.2 g/dL (3.4-5.0) L 12/25/16 08:26 Globulin 4.3 g/dL (2.5-4.5) 12/25/16 08:26 Albumin/Globulin Ratio 0.7 Ratio (1.1-2.1) L 12/25/16 08:26 Specimen Type Clean catch urine 12/24/16 21:41 Urine Color Yellow (YELLOW) 12/24/16 21:41 Urine Appearance Slightly hazy (CLEAR) 12/24/16 21:41 Urine pH 6.0 (5.0 - 8.0) 12/24/16 21:41 Ur Specific [place] 1.015 (1.000-1.030) 12/24/16 21:41 Urine Protein 1+ (NEGATIVE) 12/24/16 21:41 Urine Glucose (UA) Negative (NEGATIVE) 12/24/16 21:41 Urine Ketones Negative (NEGATIVE) 12/24/16 21:41 Urine Occult Blood 2+ (NEGATIVE) 12/24/16 21:41 Urine Nitrite Negative (NEGATIVE) 12/24/16 21:41 Urine Bilirubin Negative (NEGATIVE) 12/24/16 21:41 Urine Urobilinogen 1+ (NORMAL) 12/24/16 21:41 Ur Leukocyte Esterase 2+ (NEGATIVE) 12/24/16 21:41 Urine RBC 2-6 /HPF (NEGATIVE) 12/24/16 21:41 Urine WBC 10-15 /HPF (NEGATIVE) 12/24/16 21:41 Ur Squamous Epith Cells Few /HPF (NEGATIVE) 12/24/16 21:41 Urine Bacteria Trace /HPF (NEGATIVE) 12/24/16 21:41 Ur Culture Indicated? Yes/culture set up 12/24/16 21:41 Urine Opiates Screen Negative (NEG=<300) 12/24/16 21:41 Urine Methadone Screen Negative (NEG=<300) 12/24/16 21:41 Ur Barbiturates Screen Negative (NEG=<200) 12/24/16 21:41 Ur Phencyclidine Scrn Negative (NEG=<25) 12/24/16 21:41 Ur Amphetamines Screen Negative (NEG=<1000) 12/24/16 21:41 U Benzodiazepines Scrn Negative (NEG=<200) 12/24/16 21:41 Urine Cocaine Screen Negative (NEG=<300) 12/24/16 21:41 U Marijuana (THC) Screen Negative (NEG=<50) 12/24/16 21:41 - Plan (1) UTI (urinary tract infection) Status: Acute Qualifiers: Urinary tract infection type: acute cystitis Hematuria presence: without hematuria Indwelling urinary catheter type: I Encounter type: E Qualified Code(s): N30.00 - Acute cystitis without hematuria Plan: DISCONTINUE ROCEPHIN 1 GM IV DAILY, START FORTAZ 1 GRAM IVQ8H AND LEVAQUIN 500MG IV DAILY, CONTINUE TO MONITOR (2) Fever Status: Acute Qualifiers: Fever type: unspecified Encounter type: E Qualified Code(s): R50.9 - Fever, unspecified Plan: TYLENOL 650MG PO Q4H PRN, CONTINUE TO MONITOR (3) Weakness generalized Status: Acute Plan: CONTINUE IV FLUIDS, CONTINUE TO MONITOR
[2016-12-25] MEDS: LEVAQUIN PREMIX IV 500 MG 500 MG/100 ML BAG IV SCH (15:12)
[2016-12-25] MEDS: FORTAZ or TAZICEF INJ 1 GM in NS 50 ML IV + SPIKE MINIBAG* 50 ML IV SCH ×2 (15:12→21:49)
[2016-12-25] MEDS ORDERED: TUSSIONEX PENNKINETIC SUSP PO PRN (15:22)
[2016-12-25] MEDS ORDERED: SALINE 3% 15 ML NEB TX ONE (16:17)
[2016-12-25] MEDS ORDERED: SALINE 3% 15 ML NEB TX NEB ONE (16:20)
[2016-12-25] MEDS: NS 1000 ML 1,000 ML IV SCH (16:37)
[2016-12-25] MEDS: ROBITUSSIN DM PO SCH ×2 (16:51→21:50)
[2016-12-25] MEDS: DIFLUCAN 200 MG IV PREMIX* 200 MG/100 ML BAG IV SCH (18:32)
[2016-12-25] MEDS ORDERED: PATIENT'S HOME MEDICATION (Simvastatin [Simvastatin] 40 MG) PO SCH (21:00)
[2016-12-25] MEDS: ZyrTEC TAB 10 MG PO SCH (21:49)
[2016-12-25] MEDS: COUMADIN TAB 2.5 MG PO SCH (21:50)
[2016-12-25] MEDS: ZOCOR TAB 40 MG PO SCH (21:50)
[2016-12-25] MEDS: SINGULAIR TAB 10 MG PO SCH (21:50)
[2016-12-26] MEDS: NS 1000 ML 1,000 ML IV SCH ×2 (01:36→17:46)
[2016-12-26] MEDS: TESSALON PERLES PO SCH ×3 (06:07→21:48)
[2016-12-26] MEDS: FORTAZ or TAZICEF INJ 1 GM in NS 50 ML IV + SPIKE MINIBAG* 50 ML IV SCH ×3 (06:08→21:55)
[2016-12-26 06:13] LABS: BASOPHILS # (AUTO) 0.1 X10^3/uL (0.0-0.1); BASOPHILS % (AUTO) 0.9 % (0.2-1.0); EOSINOPHILS # (AUTO) 0.1 x10^3/uL (0.0-0.2); EOSINOPHILS % (AUTO) 0.8 % (0.9-2.9); HEMATOCRIT 33.8 % (36.0-47.0); HEMOGLOBIN 11.5 g/dL (12.0-16.0); LYMPHOCYTES % (AUTO) 14.4 % (21.0-51.0); MEAN CORPUSCULAR HEMOGLOBIN 29.9 pg (27.0-34.0); MEAN CORPUSCULAR HGB CONC 33.9 g/dL (33.0-35.0); MEAN CORPUSCULAR VOLUME 88.4 fL (80.0-100.0); MEAN PLATELET VOLUME 9.7 fL (7.4-11.0); MONOCYTES # (AUTO) 1.2 x10^3/uL (0.3-0.8); MONOCYTES % (AUTO) 8.9 % (0.0-13.0); NEUTROPHILS # (AUTO) 10.5 x10^3/uL (2.2-4.8); PLATELET COUNT 190 X10^3/uL (150.0-450.0); RED BLOOD COUNT 3.83 X10^6/uL (3.5-5.4); RED CELL DISTRIBUTION WIDTH 15.3 % (11.6-16.5); WHITE BLOOD COUNT 13.9 X10^3/uL (3.6-10.0)
--- NOTE | 2016-12-26 06:33 | RAD ---
HISTORY: Cough, shortness of breath Study: Single-view chest, done portably Comparison: December 25, 2016 Findings: There is again evidence of CABG with median sternotomy sutures and metallic markers indicating coron wiliam artery bypass grafts. The trachea is midline. Heart size is upper normal with mild pulmonary vas cular congestion. Increased interstitial markings are present bilaterally. An area of linear atelect asis or scarring is present in the right lower lobe. Improving aeration is noted in the left lung ba se. Osseous structures are intact. IMPRESSION: Interval improvement in aeration as noted above. Reported By:
[2016-12-26 06:41] LABS: ALANINE AMINOTRANSFERASE 21 Units/L (12-78); ALBUMIN 2.8 g/dL (3.4-5.0); ALKALINE PHOSPHATASE 86 Units/L (46-116); ASPARTATE AMINO TRANSFERASE 23 Units/L (15-37); BLOOD UREA NITROGEN 27 mg/dL (7-18); CALCIUM 8.3 mg/dL (8.5-10.1); CARBON DIOXIDE 24.3 mmol/L (21-32); CHLORIDE 106 mmol/L (98-107); COR CA(FOR HYPOALB) 9.3 mg/dL (8.5-10.1); CREATININE 1.44 mg/dL (0.55-1.02); GLUCOSE 94 mg/dL (65-99); SODIUM 139 mmol/L (136-145); eGFR BLACK RACES 45 (>60); eGFR NON BLACK RACES 37 (>60)
[2016-12-26] MEDS: TYLENOL 325 MG TAB PO PRN (07:44)
--- NOTE | 2016-12-26 08:30 | PCM.PROG ---
Progress Note - Progress Note for Day of Date: 12/26/16 - Subjective Subjective: PATIENT WAS AWAKE AND ORIENTED TO PERSON, PLACE, AND TIME ON MORNING ROUNDS. FAMILY IS AT BEDSIDE. PATIENT IS NOTED WITH COMPLAINTS OF COUGH AND SHORTNESS OF BREATH. VITALS THIS AM WERE 98.6, 82, 18, 91%, 124/60. PATIENT WAS AFEBRILE THROUGHOUT THE NIGHT. ON AUSCULTATION, WHEEZING IS NOTED BILATERALLY. WE OBTAINED A CBC, CMP, AND CHEST XRAY. CMP REPORTED WBC INCREASED FROM 19.0 TO 13.9, HGB 11.5, HCT 33.8. CMP REPORTED BUN 27, CREATININE 1.44, TOTAL BILIRUBIN 1.30, ALBUMIN 2.8. CHEST XRAY REPORTS MILD PULMONARY VASCULAR CONGESTION. AREA OF LINEAR ATELECTASIS OR SCARRING IS PRESENT IN THE RIGHT LOWER LOBE. IMPROVING AERATION NOTED IN THE LEFT LUNG BASE. WE WILL START DIFLUCAN IV FOR YEAST INFECTION. WE WILL CONTINUE WITH CURRENT PLAN OF TREATMENT. WE WILL RECHECK LABS AND CHEST XRAY AND FOLLOW UP WITH PATIENT IN AM. - Past Medical Family Social History Past Med/Fam/Surg Hx: No changes since H&P Allergies: Allergies No Known Drug Allergies Allergy (Verified 12/24/16 23:57) - Review of Systems ROS: No change since H&P - Vital Signs and I&O's Vital Signs: Temperature 98.6 F Pulse Rate [Left Brachial] 82 Pulse Rate 71 Respiratory Rate 18 Blood Pressure [Left Arm] 124/60 O2 Sat by Pulse Oximetry 91 Intake and Output: Intake & Output 12/23/16 12/24/16 12/25/16 12/26/16 11:59 11:59 11:59 11:59 Intake Total 1147 Output Total 400 Balance 747 - Physical Exam Oriented: Not Oriented. negative: Normal, Time, Person, Place, Unable to test, Other Eyes: Normal. negative: Blurred Vision, Diplopia, Discharge, Pain, Redness, Photophobia, Other Ear: Normal. negative: Right, Left, Swelling, Ecchymosis, Hemotypanum, Abrasion , Laceration Nose: Normal Throat: Normal. negative: Tonsillar Hypertrophy, Red, Exudate, Dry, Other Respiratory: Right, Left, Wheezes Cardiovascular: Normal. negative: Tachycardia, Bradycardia, Irregular, S3, S4, Systolic, Diastolic, Murmur, Edema, Other : Normal. negative: Dysuria, Hematuria, Frequency, Discharge, Testicular Pain , Bleeding, , Other Auscultation: Bowel Sounds: Normal. negative: Bruit, Absent, Increased, Decreased, High Pitched, Other Palpation: Normal Tenderness: Normal. negative: Diffuse, RUQ, RLQ, LUQ, LLQ, Epigastric, Periumbilical, Suprapubic, Mild, Moderate, Severe, Rebound, Guarding, Rigidity, Other Skin: Normal. negative: Decreased Turgur, Rash, Papular, Macular, Maculopapular , Vesicular, Pustular, Petechial, Red, Tender, Hot, Diaphoresis, Wound, Bruising , Ecchymosis, Other Musculoskeletal: Normal. negative: Right, Left, Shoulder, Clavicle, Arm, Elbow , Forearm, Wrist, Hand, Hip, Thigh, Knee, Leg, Ankle, Foot, Back:Thoracic, Back: Lumbar, Back:Midline, Back:Paraspinous, Pelvis, Swelling, Tender, Deformity, Pulse Deficit, Motor Deficit, Sensory Deficit, Instability, Crepitance Psychiatric: Normal. negative: Anxiety, Depression, Agitation, Other Mood Description: Calm. negative: Angry, Apathetic, Depressed, Fearful, Flat, Happy, Hostile, Sad, Suspicious, Withdrawn, Anxious, Appropriate, Labile Affect: Normal. negative: Angry, Anxious, Depressed, Flat, Hysterical, Quiet, Violent Speech Pattern: Clear. negative: Appropriate, Unclear, Inappropriate, Delayed, Slurred, Excessive, Aphasic, Artificially Ventilated - Laboratory and Diagnostics Result Diagrams: 12/26/16 03:40 12/26/16 03:40 Labs: Laboratory WBC 13.9 X10^3/uL (3.6-10.0) H 12/26/16 03:40 RBC 3.83 X10^6/uL (3.5-5.4) 12/26/16 03:40 Hgb 11.5 g/dL (12.0-16.0) L 12/26/16 03:40 Hct 33.8 % (36.0-47.0) L 12/26/16 03:40 MCV 88.4 fL (80.0-100.0) 12/26/16 03:40 MCH 29.9 pg (27.0-34.0) 12/26/16 03:40 MCHC 33.9 g/dL (33.0-35.0) 12/26/16 03:40 RDW 15.3 % (11.6-16.5) 12/26/16 03:40 Plt Count 190 X10^3/uL (150.0-450.0) 12/26/16 03:40 MPV 9.7 fL (7.4-11.0) 12/26/16 03:40 Neut % 75.0 % (42.0-75.0) 12/26/16 03:40 Lymph % 14.4 % (21.0-51.0) L 12/26/16 03:40 [place] % 8.9 % (0.0-13.0) 12/26/16 03:40 Eos % 0.8 % (0.9-2.9) L 12/26/16 03:40 Baso % 0.9 % (0.2-1.0) 12/26/16 03:40 Neut # 10.5 x10^3/uL (2.2-4.8) H 12/26/16 03:40 Lymph # 2.0 X10^3/uL (1.3-2.9) 12/26/16 03:40 [place] # 1.2 x10^3/uL (0.3-0.8) H 12/26/16 03:40 Eos # 0.1 x10^3/uL (0.0-0.2) 12/26/16 03:40 Baso # 0.1 X10^3/uL (0.0-0.1) 12/26/16 03:40 Absolute Nucleated RBC 0.0 /100WBC 12/26/16 03:40 INR Target Range - 12/25/16 09:09 INR 2.97 (0.8-1.3) H 12/25/16 09:09 PTT 43.8 SECONDS (22.9-36.5) H 12/25/16 09:09 PTT Comment - 12/25/16 09:09 Sodium 139 mmol/L (136-145) 12/26/16 03:40 Corrected Sodium TNP 12/26/16 03:40 Potassium 3.9 mmol/L (3.5-5.1) 12/26/16 03:40 Chloride 106 mmol/L (98-107) 12/26/16 03:40 Carbon Dioxide 24.3 mmol/L (21-32) 12/26/16 03:40 BUN 27 mg/dL (7-18) H 12/26/16 03:40 Creatinine 1.44 mg/dL (0.55-1.02) H 12/26/16 03:40 Est GFR (MDRD) Af Amer 45 (>60) L 12/26/16 03:40 Est GFR (MDRD) Non-Af 37 (>60) L 12/26/16 03:40 Glucose 94 mg/dL (65-99) 12/26/16 03:40 Lactic Acid 2.0 mmol/L (0.4-2.0) 12/24/16 20:41 Calcium 8.3 mg/dL (8.5-10.1) L 12/26/16 03:40 Corrected Calcium 9.3 mg/dL (8.5-10.1) 12/26/16 03:40 Total Bilirubin 1.30 mg/dL (0.2-1.0) H 12/26/16 03:40 AST 23 Units/L (15-37) 12/26/16 03:40 ALT 21 Units/L (12-78) 12/26/16 03:40 Alkaline Phosphatase 86 Units/L (46-116) 12/26/16 03:40 Creatine Kinase 70 Units/L (26-192) 12/24/16 20:41 CK-MB (CK-2) 1.0 ng/mL (0-4.0) 12/24/16 20:41 CK/CKMB % Calc 1.4 % (<4) 12/24/16 20:41 Troponin I < 0.02 ng/mL (0-1.5) 12/24/16 20:41 Total Protein 7.0 g/dL (6.4-8.2) 12/26/16 03:40 Albumin 2.8 g/dL (3.4-5.0) L 12/26/16 03:40 Globulin 4.2 g/dL (2.5-4.5) 12/26/16 03:40 Albumin/Globulin Ratio 0.7 Ratio (1.1-2.1) L 12/26/16 03:40 Specimen Type Clean catch urine 12/24/16 21:41 Urine Color Yellow (YELLOW) 12/24/16 21:41 Urine Appearance Slightly hazy (CLEAR) 12/24/16 21:41 Urine pH 6.0 (5.0 - 8.0) 12/24/16 21:41 Ur Specific [place] 1.015 (1.000-1.030) 12/24/16 21:41 Urine Protein 1+ (NEGATIVE) 12/24/16 21:41 Urine Glucose (UA) Negative (NEGATIVE) 12/24/16 21:41 Urine Ketones Negative (NEGATIVE) 12/24/16 21:41 Urine Occult Blood 2+ (NEGATIVE) 12/24/16 21:41 Urine Nitrite Negative (NEGATIVE) 12/24/16 21:41 Urine Bilirubin Negative (NEGATIVE) 12/24/16 21:41 Urine Urobilinogen 1+ (NORMAL) 12/24/16 21:41 Ur Leukocyte Esterase 2+ (NEGATIVE) 12/24/16 21:41 Urine RBC 2-6 /HPF (NEGATIVE) 12/24/16 21:41 Urine WBC 10-15 /HPF (NEGATIVE) 12/24/16 21:41 Ur Squamous Epith Cells Few /HPF (NEGATIVE) 12/24/16 21:41 Urine Bacteria Trace /HPF (NEGATIVE) 12/24/16 21:41 Ur Culture Indicated? Yes/culture set up 12/24/16 21:41 Urine Opiates Screen Negative (NEG=<300) 12/24/16 21:41 Urine Methadone Screen Negative (NEG=<300) 12/24/16 21:41 Ur Barbiturates Screen Negative (NEG=<200) 12/24/16 21:41 Ur Phencyclidine Scrn Negative (NEG=<25) 12/24/16 21:41 Ur Amphetamines Screen Negative (NEG=<1000) 12/24/16 21:41 U Benzodiazepines Scrn Negative (NEG=<200) 12/24/16 21:41 Urine Cocaine Screen Negative (NEG=<300) 12/24/16 21:41 U Marijuana (THC) Screen Negative (NEG=<50) 12/24/16 21:41 - Plan (1) UTI (urinary tract infection) Status: Acute Qualifiers: Urinary tract infection type: acute cystitis Hematuria presence: without hematuria Indwelling urinary catheter type: I Encounter type: E Qualified Code(s): N30.00 - Acute cystitis without hematuria Plan: START ROCEPHIN 1 GM IV DAILY, CONTINUE TO MONITOR (2) Altered mental status Status: Acute Qualifiers: Altered mental status type: unspecified Coma depth: C Coma timing: C Qualified Code(s): R41.82 - Altered mental status, unspecified Plan: CONTINUE TO MONITOR (3) Fever Status: Acute Qualifiers: Fever type: unspecified Encounter type: E Qualified Code(s): R50.9 - Fever, unspecified Plan: TYLENOL 650 MG PO Q4H PRN, CONTINUE TO MONITOR (4) Weakness generalized Status: Acute Plan: IV FLUIDS, CONTINUE TO MONITOR, PT CONSULT (5) Yeast infection Status: Suspected Plan: START DIFLUCAN 200MG IV DAILY, CONTINUE TO MONITOR (6) Hypertension Status: Chronic Qualifiers: Hypertension type: essential hypertension Qualified Code(s): I10 - Essential (primary) hypertension Plan: CONTINUE NORVASC, CONTINUE LOPRESSOR, CONTINUE BENICAR, CONTINUE TO MONITOR (7) CHF (congestive heart failure) Status: Chronic Qualifiers: Congestive heart failure type: unspecified congestive heart failure type Congestive heart failure chronicity: chronic Qualified Code(s): I50.9 - Heart failure, unspecified Plan: CONTINUE ALDACTONE, CONTINUE LASIX, CONTINUE TO MONITOR (8) Environmental allergies Status: Chronic Plan: CONTINUE SINGULAIR, CONTINUE ZYRTEC, CONTINUE TO MONITOR (9) Arrhythmia Status: Chronic Qualifiers: Arrhythmia type: atrial fibrillation Atrial fibrillation type: unspecified Atrial flutter type: A Premature depolarization type: P Qualified Code(s) : I48.91 - Unspecified atrial fibrillation Plan: CONTINUE COUMADIN, CONTINUE AMIODARONE, CONTINUE TO MONITOR
[2016-12-26] MEDS: DUONEB 0.5 MG/3 MG NEB SCH ×4 (09:32→20:56)
[2016-12-26] MEDS: DIFLUCAN 200 MG IV PREMIX* 200 MG/100 ML BAG IV SCH (09:51)
[2016-12-26] MEDS: BENICAR TAB 40 MG PO SCH (09:51)
[2016-12-26] MEDS: ROBITUSSIN DM PO SCH ×4 (09:51→21:50)
[2016-12-26] MEDS: ASPIRIN EC 81 MG PO SCH (09:52)
[2016-12-26] MEDS: LASIX PO SCH (09:52)
[2016-12-26] MEDS: CORDARONE TAB 200 MG PO SCH (09:53)
[2016-12-26] MEDS: ALDACTONE TAB 25 MG PO SCH (09:54)
[2016-12-26] MEDS: NORVASC TAB 5 MG PO SCH (09:58)
[2016-12-26] MEDS: PriLOSEC PO SCH (09:58)
[2016-12-26] MEDS: LEVAQUIN PREMIX IV 500 MG 500 MG/100 ML BAG IV SCH (09:58)
[2016-12-26] MEDS: LOPRESSOR TAB 25 MG PO SCH ×2 (09:58→21:48)
[2016-12-26] MEDS: COUMADIN TAB 2.5 MG PO SCH (21:46)
[2016-12-26] MEDS: ZOCOR TAB 40 MG PO SCH (21:47)
[2016-12-26] MEDS: SINGULAIR TAB 10 MG PO SCH (21:48)
[2016-12-26] MEDS: ZyrTEC TAB 10 MG PO SCH (21:49)
[2016-12-27 05:15] LABS: ALANINE AMINOTRANSFERASE 19 Units/L (12-78); ALBUMIN 2.8 g/dL (3.4-5.0); ALKALINE PHOSPHATASE 80 Units/L (46-116); ASPARTATE AMINO TRANSFERASE 24 Units/L (15-37); BLOOD UREA NITROGEN 24 mg/dL (7-18); CALCIUM 8.1 mg/dL (8.5-10.1); CARBON DIOXIDE 25.2 mmol/L (21-32); CHLORIDE 107 mmol/L (98-107); COR CA(FOR HYPOALB) 9.1 mg/dL (8.5-10.1); CREATININE 1.27 mg/dL (0.55-1.02); GLUCOSE 101 mg/dL (65-99); SODIUM 141 mmol/L (136-145); TOTAL PROTEIN 6.8 g/dL (6.4-8.2); eGFR BLACK RACES 52 (>60); eGFR NON BLACK RACES 43 (>60)
[2016-12-27 05:20] LABS: BASOPHILS # (AUTO) 0.1 X10^3/uL (0.0-0.1); BASOPHILS % (AUTO) 0.8 % (0.2-1.0); EOSINOPHILS # (AUTO) 0.3 x10^3/uL (0.0-0.2); EOSINOPHILS % (AUTO) 3.1 % (0.9-2.9); HEMATOCRIT 32.3 % (36.0-47.0); HEMOGLOBIN 11.1 g/dL (12.0-16.0); LYMPHOCYTES % (AUTO) 20.2 % (21.0-51.0); MEAN CORPUSCULAR HEMOGLOBIN 30.3 pg (27.0-34.0); MEAN CORPUSCULAR HGB CONC 34.3 g/dL (33.0-35.0); MEAN CORPUSCULAR VOLUME 88.3 fL (80.0-100.0); MEAN PLATELET VOLUME 9.6 fL (7.4-11.0); MONOCYTES # (AUTO) 1.3 x10^3/uL (0.3-0.8); MONOCYTES % (AUTO) 13.2 % (0.0-13.0); NEUTROPHILS # (AUTO) 6.1 x10^3/uL (2.2-4.8); NEUTROPHILS % (AUTO) 62.7 % (42.0-75.0); PLATELET COUNT 191 X10^3/uL (150.0-450.0); RED BLOOD COUNT 3.66 X10^6/uL (3.5-5.4); RED CELL DISTRIBUTION WIDTH 15.4 % (11.6-16.5); WHITE BLOOD COUNT 9.7 X10^3/uL (3.6-10.0)
[2016-12-27] MEDS: TESSALON PERLES PO SCH (06:00)
[2016-12-27] MEDS: NS 1000 ML 1,000 ML IV SCH (06:01)
[2016-12-27] MEDS: FORTAZ or TAZICEF INJ 1 GM in NS 50 ML IV + SPIKE MINIBAG* 50 ML IV SCH (06:01)
--- NOTE | 2016-12-27 06:30 | RAD ---
HISTORY: Shortness of breath Study: Single-view chest Comparison: December 26, 2016 Findings: There are again changes of thoracotomy with median sternotomy sutures and metallic brain indicate mi tral valve prosthesis. The trachea is midline. There is mild cardiomegaly with pulmonary vascular co ngestion. Improving aeration is noted in the right lung base. Left lung base remains about the same. No pleural fluid or pneumothorax is seen. Osseous structures are intact IMPRESSION: Postsurgical changes as noted above. Cardiomegaly with pulmonary vascular congestion. Improving aeration in the right lung base. Small amount of atelectasis or infiltrate remains in the left lung base. Reported By:
[2016-12-27 08:53] VITALS: BP 140/62
[2016-12-27] MEDS: DUONEB 0.5 MG/3 MG NEB SCH (08:58)
[2016-12-27] MEDS: LEVAQUIN PREMIX IV 500 MG 500 MG/100 ML BAG IV SCH (09:54)
[2016-12-27] MEDS: DIFLUCAN 200 MG IV PREMIX* 200 MG/100 ML BAG IV SCH (09:55)
[2016-12-27] MEDS: LASIX PO SCH (09:55)
[2016-12-27] MEDS: PriLOSEC PO SCH (09:55)
[2016-12-27] MEDS: BENICAR TAB 40 MG PO SCH (09:55)
[2016-12-27] MEDS: NORVASC TAB 5 MG PO SCH (09:55)
[2016-12-27] MEDS: ASPIRIN EC 81 MG PO SCH (09:55)
[2016-12-27] MEDS: ROBITUSSIN DM PO SCH (09:55)
[2016-12-27] MEDS: LOPRESSOR TAB 25 MG PO SCH (09:56)
[2016-12-27] MEDS: ALDACTONE TAB 25 MG PO SCH (09:56)
[2016-12-27] MEDS: CORDARONE TAB 200 MG PO SCH (09:58)
--- NOTE | 2016-12-28 11:44 | DR.CARTERD ---
- Discharge Summary for: Discharge Summary for Date of:: 12/27/16 - Admission Date Date of Admission: 12/24/16 - Admission Diagnoses Admission Diagnosis: (1) UTI (urinary tract infection) (2) Altered mental status (3) Fever (4) Weakness generalized - Discharge Diagnoses Discharge Diagnosis: (1) UTI (urinary tract infection) (2) Altered mental status (3) Fever (4) Weakness generalized (5) Yeast infection (6) Hypertension (7) CHF (congestive heart failure) (8) Environmental allergies (9) Arrhythmia - Hospital Course Hospital Course: IS A 81 YEAR OLD PATIENT OF OURS WHO PRESENTED TO THE EMERGENCY ROOM WITH COMPLAINTS OF WEAKNESS, INCOORDINATION, AND FEVER. FAMILY ALSO STATED THAT PATIENT HAD BEEN CONFUSED AND THAT SYMPTOMS STARTED SUDDENLY PRIOR TO COMING TO THE ER. PATIENT IS S/P MITRAL VALVE REPLACEMENT 6 WEEKS AGO. PATIENT DENIED ANY CHEST PAIN, HOWEVER, WAS NOTED WITH COUGH AND SHORTNESS OF BREATH. ON ARRIVAL TO ER, VITALS WERE 101.0. 92, 18, 98%, 146/66. LABS REPORTED A NORMAL CBC EXCEPT WBC 14.5. CMP WITHIN NORMAL LIMITS EXCEPT VUN 28, CREATININE 1.58, GLUCOSE 115, TOTAL BILIRUBIN 1.50. INR 2.79. URINALYSIS REPORTED WBC 10-15, RBC 2-6, LEUKOCYTES 2+, OCCULT BLOOD 2+, PROTEIN 1+. WE ADMITTED PATIENT FOR FUTHER TREATMENT AND EVALUATION. WE STARTED PATIENT ON NS @80ML/HR, ROCEPHIN 1GM IV DAILY, AND DUONEBS TID. ON DAY 2 OF STAY PATIENT CONTINUED WITH SHORTNESS OF BREATH AND COUGH. CBC REPORTED AN INCREASED WBC FROM 14.5 TO 19.0. WE CHECKED A CHEST XRAY WHICH REPORTED POSSIBLE DEVELOPING PNEUMONIA. WE DISCONTINUED ROCEPHIN IV AND STARTED FORTAZ IV AND LEVAQUIN IV. OVER THE NEXT FEW DAYS, PATIENTS COUGH AND SHORTNESS OF BREATH BEGAN TO IMPROVE. BY DAY OF ADMISSION, WBC WAS DOWN TO 9.7. CMP WNL EXCEPT BUN 24, CREATININE 1.27, GLUCOSE 101, CALCIUM 8.1, TOTOAL BILIRUBIN 1.20, ALBUMIN 2.8. INR 3.73, PTT 66.5. CHEST XRAY REPORTED IMPROVING AEARATION IN LEFT LUNG BASE. WE PLANNED FOR DISCHARGE. INSTRUCTIONS FOR MEDICATION AND FOLLOW-UP WERE GIVEN TO PATIENT AND DAUGHTER. THEY BOTH VERBALIZED UNDERSTANDING. PATIENT WAS DISCHARGED TO HOME IN STABLE CONDITION WITH INSTRUCTIONS TO FOLLOW UP IN OFFICE. PATIENT WAS INSTRUCTED TO HOLD TONIGHTS DOSAGE OF COUMADIN AND TO RESUME TAKING IT TOMORRW. SHE WAS DICHARGED HOME ON HER CURRENT HOME MEDICATION AND A NEW PRESCRIPTION FOR LEVAQUIN, TESSALON PERLES, AND TUSSIONEX. - Discharge Medications Discharge Medications: Amiodarone HCl 1 tab PO DAILY 12/24/16 [History] Amlodipine Besylate [NORVASC 5 MG *] 1 tab PO DAILY 12/24/16 [History] Furosemide 1 tab PO DAILY 12/24/16 [History] Olmesartan Medoxomil [Benicar] 1 tab PO DAILY 12/24/16 [History] Spironolactone 0.5 tab PO DAILY 12/24/16 [History] Warfarin Sodium 1 tab PO HS 12/24/16 [History] Benzonatate [TESSALON PERLES *] 200 mg PO TID PRN #30 cap 12/25/16 [Rx] Metoprolol Tartrate 25 mg PO HS 12/25/16 [History] Hydrocodone Polist/Chlorphenir [Tussionex Pennkinetic Susp] 5 ml PO Q12H PRN # 60 ml 12/27/16 [Rx] Levofloxacin [LEVAQUIN TAB 500 MG *] 500 mg PO DAILY #7 tab 12/27/16 [Rx]
== END 2016-12-27 12:20 | disposition home or self-care (01) | DRG 690 ==
LOC: ER 20:01 → MED/SURG 22:38 → OBSVTOIN 12-25 10:00
PROVIDERS: ADMIT Internal Medicine; ATTEND Internal Medicine
DX: N30.00 Acute cystitis without hematuria (principal); R41.82 Altered mental status, unspecified; R94.31 Abnormal electrocardiogram [ECG] [EKG]; R06.02 Shortness of breath; R50.9 Fever, unspecified; R53.1 Weakness; I25.10 Atherosclerotic heart disease of native coronary artery without angina pectoris; E78.2 Mixed hyperlipidemia; K21.9 Gastro-esophageal reflux disease without esophagitis; I10 Essential (primary) hypertension; I50.9 Heart failure, unspecified; I48.91 Unspecified atrial fibrillation; B37.89 Other sites of candidiasis; T78.49XA Other allergy, initial encounter; X58.XXXA Exposure to other specified factors, initial encounter; R79.1 Abnormal coagulation profile
CPT/HCPCS: 36415; 70450; 71010; 80053; 80307; 81001; 82550; 82553; 83605; 84484; 85025; 85610; 85730; 87040; 87077; 87086; 87186; 93005; 94640; 96365; 99284; A4216; A4222; G0378; G0434; J0696; J0713; J1335; J1450; J1956; J7620

== ENCOUNTER → 2017-06-23 | Outpatient (CLI) | payer OTHER ==
--- NOTE | 2017-06-23 13:20 | CT ---
HISTORY: Ataxic gait, head injury, head trauma. Noncontrast head CT examination. Comparison: Head CT exam dated 06/18/2013. Technique: Multiple axial images of the brain were obtained from the skull base to the vertex without administra tion of IV contrast. Findings: There is moderate sulcal and cisternal prominence as well as atherosclerotic change in the proximal intracranial carotid and vertebral arteries, which is not out of proportion to the patient's stated age. There is diffuse CT density alteration seen in the periventricular white matter of the h igh and mid-convexity, which is likely in the setting of small vessel disease and not out of proporti on to the patient's stated age. There is no pathologic ventricular dilatation or CT evidence for hydr ocephalus or herniation syndrome. No midline shift is evident. No acute intraparenchymal hemorrhage o r mass can be identified. No extra-axial fluid collections are seen. No alteration in the attenuati on of the brain parenchyma can be identified to suggest acute or subacute ischemic change. The extra cranial structures are unremarkable. However, should this patient's clinical symptoms persist, follow -up MRI imaging of the brain is recommended. IMPRESSION: 1. No acute intracranial process or bleed identified. 2. Age-appropriate intra-cranial changes of advancing age. Reported By:
== END ==
LOC: RAD 12:46
PROVIDERS: ATTEND Internal Medicine
DX: R26.0 Ataxic gait (principal); H92.23 Otorrhagia, bilateral; S09.8XXA Other specified injuries of head, initial encounter; X58.XXXA Exposure to other specified factors, initial encounter
CPT/HCPCS: 70450

== ENCOUNTER → 2017-07-09 | Outpatient (CLI) | payer OTHER ==
[2017-07-09 13:41] LABS: CREATININE 1.88 mg/dL (0.55-1.02)
--- NOTE | 2017-07-09 15:23 | VAS ---
HISTORY: Concern for carotid artery stenosis. Disorientation. Altered mental status. Technique: Multiple quintana scale and color flow Doppler images of the right and left carotid arterial s ystem were obtained. The vertebral arterial system was evaluated as well. Findings: Nonocclusive color flow Doppler is seen throughout the right and left carotid arterial system. No hem odynamically significant carotid arterial stenosis is seen based on velocity criteria. There is mild atherosclerosis and plaque formation of the bilateral carotid bulbs and proximal ICAs with associated intimal thickening but without evidence for high-grade stenosis (>70%) or occlusion of the carotid a rteries. The right and left vertebral artery demonstrate antegrade flow. IMPRESSION: Mild atherosclerosis and plaque formation of the bilateral carotid bulbs and proximal ICAs with assoc iated carotid intimal thickening but without evidence for high-grade stenosis or occlusion of the car otid arteries, based on Doppler velocity criteria. Appropriate, antegrade, vertebral arterial flow. Peak right ICA velocity: 106 cm/sec Peak left ICA velocity: 71 cm/sec Right ICA to CCA ratio: 1.84. Left ICA to CCA ratio: 0.82. Reported By:
--- NOTE | 2017-07-10 09:05 | MRI ---
STUDY: MRI OF THE BRAIN WITHOUT GADOLINIUM HISTORY: Disoriented. Double vision. Technique: Multiplanar multi-sequence MRI of the brain was obtained utilizing standard departmental p rotocol. Sagittal and axial T1, axial T2, FLAIR, diffusion (DWI/ADC), GRE and coronal T2 images throu gh the brain were performed. Comparison: Head CT from June 23, 2017. Findings: The sulci, cisterns and ventricles are prominent consistent with diffuse volume loss. There are confl uent and scattered foci of T2 prolongation in the periventricular and subcortical white matter of bot h hemispheres. This is a nonspecific finding which likely represents microangiopathic change in a pat ient of this age. There is an old infarct in the left cerebellar hemisphere. There are several foci of T2 prolongation in the right cerebellar hemisphere. These have associated signal abnormality on diffusion images cons istent with T2 shine through. No foci of restricted diffusion are identified. There is a focus of abnormal susceptibility in the posterior aspect of the 4th ventricle. There is an other focus of abnormal susceptibility in the periventricular white matter of the left pantoja radiata . Several additional smaller foci of susceptibility are noted in the left temporal lobe and in the po steromedial left parietal lobe. There is no evidence of acute territorial infarction, acute hemorrhage, mass, mass effect, or midline shift. There are no abnormal intra-axial or extra-axial fluid collections. The major intracranial va scular flow voids appear intact. The left vertebral artery appears dominant. IMPRESSION: 1. 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 2. 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 3. Nonspecific white matter change and volume loss. 4. Multiple foci of susceptibility as described, most consistent with focal hemosiderin deposition. These findings may be seen as a sequelae of prior closed head injury. However, that may also be seen in the setting of chronic are poorly controlled hypertension. Clinical correlation is required. Reported By:
== END ==
LOC: RAD 13:02
PROVIDERS: ATTEND Physician Assistant
DX: R41.0 Disorientation, unspecified (principal); Z95.2 Presence of prosthetic heart valve; R09.89 Other specified symptoms and signs involving the circulatory and respiratory systems
CPT/HCPCS: 36415; 70551; 82565; 84520; 93306; 93880